=== PATIENT | female | born 2000 | race Caucasian/White ===

== ENCOUNTER → 2023-08-30 13:04 | Outpatient (REF) | payer OTHER, SELFPAY | LOC: RAD 13:04 | PROVIDERS: ATTENDING PHYSICIAN Internal Medicine | DX: R10.13 Epigastric pain (principal) | CPT/HCPCS: 74177; Q9967 ==

== ENCOUNTER 2023-08-30 17:30 | Emergency (ER) | payer OTHER, SELFPAY ==
[2023-08-30 17:33] VITALS: BP 116/84
[2023-08-30] MEDS: ZOFRAN 4 MG IV (18:17)
[2023-08-30] MEDS: CARAFATE SUSPENSION 1 GM PO (18:17)
[2023-08-30] MEDS: PROTONIX IV 40 MG IV (18:17)
[2023-08-30 18:20] VITALS: BP 118/73
[2023-08-30 18:26] LABS: % Basophils 0.3 % (0-2); % Eosinophils 0.3 % (0-6); % Immature Granulocytes 0.3 % (0-0.5); % Lymphocytes 18.9 % (20.5-51.1); % Monocytes 5.3 % (1.7-9.3); % Neutrophils 74.9 % (42.2-75.2); Absolute Lymphocytes 2.2 10^3/uL (1.2-3.4); Absolute Monocytes 0.6 10^3/uL (0.1-0.6); Absolute Neutrophils 8.8 10^3/uL (1.4-6.5); Hematocrit 41.3 % (37.0-47.0); Hemoglobin 14.4 g/dL (12.0-16.0); Mean Corp Hgb Conc. 34.9 g/dL (33.0-37.0); Mean Corpuscular Volume 88.8 fL (81.0-99.0); Mean Platelet Volume 9.9 fL (7.4-10.4); Nucleated Red Blood Cells % 0 %; Platelet Count 272 10^3/uL (130-400); Red Blood Cell Count 4.65 10^6/uL (4.20-5.40); Red Cell Dist. Width 11.9 % (11.5-14.5); White Blood Cell Count 11.8 10^3/uL (4.8-10.8)
--- NOTE | 2023-08-30 18:30 | ED.GENMED ---
History of Present Illness
General
Chief Complaint: Abdominal Pain
Source: patient
Exam Limitations: none
Time Seen by Provider: 08/30/23 17:55
Travel History
Have you had any contact with someone who has COVID-19?: No
Do you have any symptoms of coronavirus? Fever > 100 degrees, chills, cough, shortness of breath, sore throat, loss of taste or smell, muscle aches, or headache?: No
History of Present Illness
History of Present Illness:
This is a 23 year old female that comes in with c/o upper abd discomfort that goes up into her chest. States that this started yesterday afternoon at 2pm and has continued since that time. States that she was nauseated and lightheaded. States that
she had CT done today that was ordered by her PCP. States that she was told to come to the ER. Denies any fever, chills, SOB, vomiting, diarrhea, headache, dizziness, urinary burning.
Past History
Past History
ED Past Medical History: Asthma (Sports induced); Negative HTN, Hypercholesterolemia or NIDDM
ED Past Surgical History: None
Social History
Tobacco: Non-smoker
Alcohol: None
Personal: Single
Living: alone
Review of Systems
Review of Systems
All Other Systems: ROS reviewed and negative except as documented in HPI and ROS
Constitutional: Reports no symptoms; Denies fever or chills
EENT: Reports no symptoms
Respiratory: Denies cough or trouble breathing
Cardiac: Reports chest pain
ABD/GI: Reports abdominal pain (Upper abd) and nausea; Denies vomiting or diarrhea
: Reports no symptoms
Musculoskeletal: Reports no symptoms
Skin: Reports no symptoms
Neurological: Reports other (Lightheaded); Denies dizzy or headache
Psychiatric: Reports no symptoms
Phy Exam
General Physical Exam
General Presentation: well appearing and no apparent distress
General age: appears stated age
General Skin: warm and dry
General Habitus: normal
General Mental: alert
General Hydration: appears well hydrated
ENT Exam
ENT Exam: TM's normal, pharynx normal and neck supple
Eye Exam
Eye Exam: EOMI
Cardiovascular Exam
Cardiovascular Exam: regular rate/rhythm, no edema, no murmur and normal peripheral pulses
Pulmonary Exam
Pulmonary Exam: lungs clear, no respiratory distress, no rales, chest non tender, no crackles, no rhonchi, no wheezing and no cough
Gastrointestinal Exam
Gastrointestinal Exam: normal bowel sounds, soft, no organomegaly, no pulsatile mass, non distended and tender (Epigastric area tenderness with palpation)
Musculoskeletal Exam
Musculoskeletal Exam: full ROM and no edema
Skin Exam
Skin Exam: normal color, warm/dry, no rash and no petechia
Psychiatric Exam
Psychiatric Exam: normal mood/affect
Course
Orders/Labs/Results
Orders:
Orders
08/30/23 18:07
Ondansetron Injectable [Zofran] 4 mg IV NOW STA
Pantoprazole [Protonix IV] 40 mg IV NOW STA
Sucralfate Suspension [Carafate Suspension] 1 gm PO NOW STA
08/30/23 18:08
Electrocardiogram (*1) Urgent
Reason for Study: Abdominal Pain
Test Result ONCE
08/30/23 18:09
EKG- Treatment ONCE
08/30/23 18:18
Complete Blood Count/With Diff Urgent
Comprehensive Metabolic Panel Urgent
HCG, Serum Qualitative Screen Urgent
Lipase Urgent
Troponin I Urgent
Abnormal Lab Results
08/30/23
18:18
WBC 11.8 H 10^3/uL
(4.8-10.8)
Absolute Neuts (auto) 8.8 H 10^3/uL
(1.4-6.5)
Lymphocytes % 18.9 L %
(20.5-51.1)
Sodium 134 L mmol/L
(135-145)
BUN 6 L mg/dl
(7-17)
08/30/23 18:18
08/30/23 18:18
WBC very slightly elevated. Troponin 0.017, Lipase normal at 147, HCG negative.
Vital Signs
Initial and Last Documented VS:
Initial Vital Signs
Temp Pulse Resp BP Pulse Ox
98.1 F 82 20 116/84 97
08/30/23 17:33 08/30/23 17:33 08/30/23 17:33 08/30/23 17:33 08/30/23 17:33
Last Documented Vital Signs
Temp Pulse Resp BP Pulse Ox
98.1 F 62 18 118/73 100
08/30/23 17:33 08/30/23 18:37 08/30/23 18:37 08/30/23 18:37 08/30/23 18:37
MDM/Problems Addressed
Differential Diagnosis Includes:
Gastritis, Developing Ulcer
MDM/Problems Addressed:
This is a 23 year old female that comes in with c/o upper abd pain and chest pain that started yesterday at 2pm. States that this has been constant so the PCP sent her for a CT scan. States that she was told to come to the ER.
Will check labs, and medicate for nausea and Gastritis.
Back into see patient. Patient states that she is so much better and is smiling. Explained that this is most likely a Gastritis. Will place patient on Protonix daily and Carafate. Patient to follow up with the GI specialist for further evaluation.
Patient to return with vomiting, increased pain, fever, or any other concerns.
Chronic conditions affecting care:
NA
Acute Exacerbation and/or Progression of Chronic Illness:
NA
*Radiology
Radiology exam reviewed: radiology read reviewed (Outpatient CT- Mild to moderate circumferential irregular wall thickening in the gastric antrum. Diagnostic possibilities are (1) acute gastritis (2) Peptic ulcer disease, or (3) under distention of
the gastric lumen. IUD in the endometrial canal. Minimal peritoneal fluid in the pelvis. )
*Pulse Oximetry
Patient hypoxic: no
*Office Analyst Interpretation
Rate: Office Analyst- N/A
*Critical Care Note
Total Time (30-74mins, 75-104mins- exclusive of procedures): Not Applicable
ED Attending Note
-
Portions of this chart may have been created with voice recognition software.� Occasional wrong word or��sound alike� substitutions may have occurred due to the inherent limitations of voice recognition software.
Discharge Plan
Departure
Patient Disposition: Home (Routine Discharge)
Date of Disposition: 08/30/23
Time of Disposition: 19:52
Patient with high blood pressure during this ER visit?: No
Condition: Good
Covid-19: Not Applicable
Discharge Problem:
Gastritis
Instructions: Gastritis (DC), Ulcer and Gastritis Diet
Prescriptions:
New
pantoprazole [Protonix] 40 mg tablet,delayed release (DR/EC)
40 mg PO DAILY Qty: 30 0RF
sucralfate [Carafate] 1 gram tablet
1 g PO ACHS Qty: 20 0RF
Rx Instructions:
30min-1hr before meals and Bedtime. Dissolve in 10ml water and drink
Referrals:
Amrit Leung DO [Family Provider] - Call in 1-3 days for appt
Pierre Odonnell MD [Active] - Call in 1-3 days for appt
Activity Restrictions/Additional Instructions:
As discussed, your blood work shows that the WBC are very slightly elevated. This can happen with stress. Your Other labs are normal. This is most likely a Gastritis or a developing Ulcer. You have had 2 prescriptions sent to your Pharmacy. The
first is Protonix 40mg which you will take daily. The second is Carafate that you dissolve in 10ml or 2 tsp of water and drink 30 min to 1 hour before meals and again at Bedtime. Follow up with the family doctor or the GI specialist for further
evaluation. IF YOU HAVE INCREASED OR CHANIGNG PAIN, FEVER, VOMITING, OR YOU HAVE ANY OTHER CONCERNS PLEASE RETURN TO THE EMERGENCY ROOM
Interventions
Interventions:
*Risk Screen - Suicide Last Done: 08/30/23 18:08
*General Assessment Last Done: 08/30/23 18:08
*Neglect/Abuse Screening Last Done: 08/30/23 18:08
[facility] Assessment Last Done: 08/30/23 18:08
[2023-08-30 18:37] VITALS: BP 118/73
[2023-08-30 18:39] LABS: HCG, Serum Qualitative Screen Negative
[2023-08-30 18:43] LABS: ALT (SGPT) 21 U/L (0-35); AST (SGOT) 34 U/L (14-36); Albumin 4.7 g/dl (3.5-5.0); Alkaline Phosphatase 92 U/L (38-126); Blood Urea Nitrogen 6 mg/dl (7-17); Calcium 9.9 mg/dl (8.4-10.2); Carbon Dioxide 25 mmol/L (22-30); Chloride 102 mmol/L (98-107); Glucose 96 mg/dl (70-99); Lipase 147 U/L (23-300); Potassium 3.8 mmol/L (3.5-5.1); Sodium 134 mmol/L (135-145); Total Bilirubin 0.9 mg/dl (0.2-1.3); Total Protein 7.4 g/dl (6.3-8.2); eGFR > 60.00
[2023-08-30 18:50] LABS: Troponin I 0.017 ng/ml
== END 2023-08-30 20:21 | disposition home or self-care (01) ==
LOC: EMR 17:30
PROVIDERS: Clinical Nurse Specialist Family Health; EMERGENCY PHYSICIAN Student in an Organized Health Care Education/Training Program; FAMILY PHYSICIAN Internal Medicine
DX: K29.70 Gastritis, unspecified, without bleeding (principal)
CPT/HCPCS: 99284; 96374; 96375; 80053; 83690; 84484; 84703; 85025; 93005